=== PATIENT | female | born 1975 | race Caucasian/White ===

== ENCOUNTER 2022-01-02 20:56 | Outpatient (CLI) | payer OTHER, SELFPAY | END 2022-01-02 20:57 | disposition home or self-care (01) | LOC: SLEEP 20:57 | PROVIDERS: PCP Family Medicine; Visit Provider Internal Medicine | DX: G47.33 Obstructive sleep apnea (adult) (pediatric) (principal) | CPT/HCPCS: 95810 ==

== ENCOUNTER 2024-09-14 13:23 | Outpatient (CLI) | payer OTHER, SELFPAY | END 2024-09-14 13:24 | disposition home or self-care (01) | LOC: NFLDUCREF 13:24 | PROVIDERS: PCP Family Medicine; Visit Provider Nurse Practitioner Family | DX: M10.9 Gout, unspecified (principal) | CPT/HCPCS: 84550 ==

== ENCOUNTER 2024-09-29 11:13 | Outpatient (CLI) | payer OTHER, SELFPAY ==
--- NOTE | 2024-09-29 11:30 | CRLHL7_ITS ---
For Patients: As a result of the Century Cures Act, medical imaging exams and procedure reports are released immediately into your electronic medical record. You may view this report before your referring provider. If you have questions, please contact your health care provider. Indication: pain in lower left leg Technique: Real-time longitudinal and transverse sonographic alexandre-scale imaging with and without compression, as well as color, duplex, and spectral Doppler imaging before and after augmentation, was obtained of the deep system of the left lower extremity, including the common femoral, femoral, popliteal, posterior tibial, and peroneal veins. Comparison: None. Findings: Common femoral vein: No evidence of thrombus. Femoral vein: No evidence of thrombus. Popliteal vein: No evidence of thrombus. Calf veins: Patent. 3.4 x 1.4 x 3.4 centimeter left Garcia cyst with internal complexity. Impression: 1. No ultrasound evidence of deep venous thrombosis. 2. 3.4 x 1.4 x 3.4 centimeter left Garcia cyst with internal complexity, which may represent prior inflammation or trauma. Dictated by Stuart Kapoor MD @ 09/29/2024 12:13:38 PM (Electronically Signed)
== END 2024-09-29 11:14 | disposition home or self-care (01) ==
LOC: US 11:14
PROVIDERS: PCP Family Medicine; Visit Provider Orthopaedic Surgery
DX: M79.662 Pain in left lower leg (principal); M71.22 Synovial cyst of popliteal space [Baker], left knee; M79.89 Other specified soft tissue disorders
CPT/HCPCS: 93971